=== PATIENT | female | born 1960 | race Caucasian/White ===

== ENCOUNTER 2021-02-25 14:49 | Emergency (ER) | payer OTHER ==
[~2021-02-25 14:49] MED LIST: ADVANCED CALCI1 EACH PO; ATARAX25 MG PO; CIPRO500 MG PO; CLARITIN10 MG PO; FERRETTS325 MG PO; FLORANEX TABLE1 EACH PO; GARLIC OIL1000 MG PO; MAGNESIUM SULF100 MG PO; PROTONIX 40MG T40 MG PO; TOPROL XL 50 MG50 MG PO; ZOLOFT100 MG PO
[2021-02-25] MEDS ORDERED: FLEXERIL5 MG PO (16:05)
[2021-02-25] MEDS ORDERED: VOLTAREN **OUT50 MG PO (16:05)
== END 2021-02-25 16:22 | disposition home or self-care (01) ==
LOC: FER 14:49
DX: S46.911A Strain of unspecified muscle, fascia and tendon at shoulder and upper arm level, right arm, initial encounter (principal); I10 Essential (primary) hypertension; Z88.1 Allergy status to other antibiotic agents; V43.52XA Car driver injured in collision with other type car in traffic accident, initial encounter; Y92.410 Unspecified street and highway as the place of occurrence of the external cause
CPT/HCPCS: 73030; J1885

== ENCOUNTER 2022-05-09 10:32 | Emergency (ER) | payer OTHER ==
[~2022-05-09 10:32] MED LIST changes: +FLEXERIL5 MG PO; +VOLTAREN **OUT50 MG PO
[2022-05-09 11:25] LABS: BILIRUBIN NEGATIVE (NEGATIVE); BLOOD NEGATIVE Ery/uL (NEGATIVE); CLARITY CLEAR (CLEAR); COLOR YELLOW (YELLOW); GLUCOSE (U) NORMAL (NORMAL); LEUKOCYTES NEGATIVE Leu/uL (NEGATIVE); NITRITE NEGATIVE (NEGATIVE); PROTEIN NEGATIVE (NEGATIVE); SPECIFIC GRAVITY <=1.005 (1.001-1.030); UROBILINOGEN 0.2 mg/dL (0.2-1.0); pH 6.5 (5.0-9.0)
[2022-05-09] MEDS ORDERED: NAPROXEN500 MG PO (12:06)
[2022-05-09] MEDS ORDERED: CYCLOBENZAPRINE10 MG PO (12:38)
== END 2022-05-09 12:43 | disposition home or self-care (01) ==
LOC: FER 10:32
PROVIDERS: Emergency Medicine
DX: M54.50 Low back pain, unspecified (principal); Z28.310 Unvaccinated for COVID-19; Z88.1 Allergy status to other antibiotic agents
CPT/HCPCS: 81003